=== PATIENT | male | born 1955 | race Caucasian/White ===

== ENCOUNTER → 2016-08-16 | Outpatient (CLI) | payer OTHER ==
--- NOTE | 2016-08-16 09:30 | CT ---
EXAMINATION TYPE: CT abdomen pelvis wo con DATE OF EXAM: 08/16/2016 7:48 AM COMPARISON: 01/29/2016 INDICATION: Right sided pain DLP: 752 mGycm, Automated exposure control for dose reduction was used. CONTRAST: None Study performed without Oral Contrast TECHNIQUE: Axial images were obtained from above the diaphragm to the pubic rami in the axial plane a t 5 mm thick sections. Reconstructed images are reviewed on the computer in the coronal plane. FINDINGS: Limited CT sections are obtained the lung bases. The lung bases are clear. CT ABDOMEN: Liver: Normal Spleen: Normal Pancreas: Normal Adrenal glands: The adrenal glands are normal. Gallbladder: Normal Kidneys: No masses are evident. No hydronephrosis is present. There is a 1.8 cm cyst measuring -3 H [place] units on the medial upper left kidney. Couple of punctate cortical medullary calcification s are within the left kidney. The largest calcifications are within the inferior pole measuring 0.3 a nd 0.2 cm. Aorta: Normal Inferior vena cava: Normal. CT PELVIS: Loops of bowel within the abdomen and pelvis are normal. Few diverticuli within the sigmoid colon . No inflammatory changes are adjacent. Appendix: Normal as visualized. Urinary bladder: Normal. Genitourinary structures: Multiple calcifications are in the slightly prominent prostate. There is so me subtle asymmetry of the seminal vesicles was slightly larger left than right. This could be furthe r evaluate with transrectal prostate sonography. Osseous structures: No suspicious lytic or sclerotic lesions. IMPRESSIONS: 1. Scattered small nonobstructing left renal stones. 2. Left renal cyst 3. Few diverticuli within the sigmoid colon without acute diverticulitis.
== END ==
LOC: RADCTMAIN 07:30
PROVIDERS: ATTEND Internal Medicine
DX: N20.0 Calculus of kidney (principal); N28.1 Cyst of kidney, acquired; K57.30 Diverticulosis of large intestine without perforation or abscess without bleeding
CPT/HCPCS: 74176

== ENCOUNTER → 2016-08-19 | Outpatient (CLI) | payer OTHER ==
--- NOTE | 2016-08-19 10:40 | XR ---
EXAMINATION TYPE: XR KUB DATE OF EXAM: 08/19/2016 10:33 AM HISTORY: Pain Comparison: None.Single KUB is submitted for interpretation. Findings: Right renal calculi: None Visualized. Right ureteral calculi: None Visualized. Left renal calculi: None Visualized. Left ureteral calculi: None Visualized. Pelvic calcifications: Phleboliths noted. Prostate calcifications also identified. Bowel gas pattern is unremarkable. No free air. No mass effects. IMPRESSION: 1.
== END | disposition home or self-care (01) ==
LOC: RADXRMAIN 10:20
PROVIDERS: ATTEND Physician Assistant
DX: N20.0 Calculus of kidney (principal)
CPT/HCPCS: 74000

== ENCOUNTER 2018-06-13 10:57 | Emergency (ER) | payer OTHER ==
[2018-06-13 11:04] VITALS: RESP 18
[2018-06-13] MEDS ORDERED: NITROGLYCERIN OINT 1 INCH/GM PACKET TOPICAL STA (11:14)
[2018-06-13] MEDS ORDERED: ASPIRIN 81 MG PO STA (11:14)
--- NOTE | 2018-06-13 11:17 | ED ---
General Adult HPI - General Source: patient, RN notes reviewed Mode of arrival: ambulatory Limitations: no limitations <Zeus Lubin - Last Filed: 06/13/18 11:56> <Jaquan Encinas - Last Filed: 06/13/18 12:50> - General Chief complaint: Chest Pain Stated complaint: JERALD Time Seen by Provider: 06/13/18 11:00 - History of Present Illness Initial comments: This is a 62-year-old male with past medical history significant for high cholesterol and high blood pressure. Patient comes in today complaining that for a couple days he's had jaw pain and today he started having left-sided chest pain. Patient states he also has had a little bit of a sore throat but that is improving. Patient states he's mildly short of breath. Patient denies any diaphoretic episodes. Patient denies any abdominal pain. Patient denies any nausea vomiting diarrhea. Patient denies any palpitations. Patient denies lightheadedness dizziness or near syncopal episode. Patient denies any swelling to the legs or calf tenderness. Patient denies any previous cardiac history. (Zeus Lubin) - Related Data Home Medications Medication Instructions Recorded Confirmed Atorvastatin [Lipitor] 10 mg PO DAILY 05/05/15 06/13/18 HYDROcodone/APAP 7.5-325MG [[place] 1 tab PO Q8HR PRN 06/13/18 06/13/18 7.5-325] Metoprolol Tartrate [Lopressor] 25 mg PO DAILY 06/13/18 06/13/18 amLODIPine BESYLATE/BENAZEPRIL 1 cap PO DAILY 06/13/18 06/13/18 [amLODIPine BESYLATE/BENAZEPRIL 10-20 mg] hydrALAZINE HCL [Apresoline] 25 mg PO BID 06/13/18 06/13/18 Previous Rx's Medication Instructions Recorded Albuterol Sulfate [Proair Hfa] 1 - 2 puff INHALATION Q6HR PRN #1 06/13/18 inhaler Allergies Allergy/AdvReac Type Severity Reaction Status Date / Time No Known Allergies Allergy Verified 06/13/18 11:21 Review of Systems ROS Other: All systems not noted in ROS Statement are negative. <Zeus Lubin - Last Filed: 06/13/18 11:56> ROS Other: All systems not noted in ROS Statement are negative. <Jaquan Encinas - Last Filed: 06/13/18 12:50> ROS Statement: Those systems with pertinent positive or pertinent negative responses have been documented in the HPI. Past Medical History Past Medical History: Asthma, Hypertension Additional Past Medical History / Comment(s): hypercholesteremia; asthma as child History of Any Multi-Drug Resistant Organisms: None Reported Additional Past Surgical History / Comment(s): colonoscopy Past Anesthesia/Blood Transfusion Reactions: No Reported Reaction Past Psychological History: No Psychological Hx Reported Smoking Status: Light tobacco smoker Past Alcohol Use History: Daily Past Drug Use History: None Reported - Past Family History Father Family Medical History: Congestive Heart Failure (CHF), Diabetes Mellitus Additional Family Medical History / Comment(s): passed at age 62. <Zeus Lubin - Last Filed: 06/13/18 11:56> General Exam Limitations: no limitations <Zeus Lubin - Last Filed: 06/13/18 11:56> <Jaquan Encinas - Last Filed: 06/13/18 12:50> - General Exam Comments Initial Comments: GENERAL: Patient is well-developed and well-nourished. Patient is nontoxic and well- hydrated and is in mild distress. ENT: Neck is soft and supple. No significant lymphadenopathy is noted. Oropharynx is clear. Moist mucous membranes. Neck has full range of motion without eliciting any pain. EYES: The sclera were anicteric and conjunctiva were pink and moist. Extraocular movements were intact and pupils were equal round and reactive to light. Eyelids were unremarkable. PULMONARY: Unlabored respirations. Good breath sounds bilaterally. No audible rales rhonchi or wheezing was noted. CARDIOVASCULAR: There is a regular rate and rhythm without any murmurs gallops or rubs. Femoral pulses are equal bilaterally ABDOMEN: Soft and nontender with normal bowel sounds. No palpable organomegaly was noted. There is no palpable pulsatile mass. SKIN: Skin is clear with no lesions or rashes and otherwise unremarkable. NEUROLOGIC: Patient is alert and oriented 3 cranial nerves II through XII are grossly intact motor and sensory are also intact MUSCULOSKELETAL: Normal extremities with adequate strength and full range of motion. LYMPHATICS: No significant lymphadenopathy is noted PSYCHIATRIC: Normal psychiatric evaluation. (Zeus Lubin) Vital Signs 06/13/18 06/13/18 06/13/18 11:01 11:29 11:30 Temperature 98.0 F Pulse Rate 94 82 Respiratory 18 20 Rate Blood Pressure 158/99 137/82 O2 Sat by Pulse 99 97 96 Oximetry 06/13/18 06/13/18 12:00 12:30 Temperature Pulse Rate 77 76 Respiratory 18 18 Rate Blood Pressure 131/79 126/78 O2 Sat by Pulse 97 97 Oximetry Medical Decision Making - Lab Data Result diagrams: 06/13/18 11:21 06/13/18 11:21 <Zeus Lubin - Last Filed: 06/13/18 11:56> - Lab Data Result diagrams: 06/13/18 11:21 06/13/18 11:21 <Jaquan Encinas - Last Filed: 06/13/18 12:50> - Medical Decision Making EKG shows normal sinus rhythm at 89 bpm IN interval is 170 QRS is 86 QT interval 356 QTC is 433. Patient's EKG shows no ST segment elevation or depression or T wave abnormalities are noted. Dr. Encinas will be taking care of this patient at 12:00 (Zeus Lubin) Patient is reevaluated by myself. He states that he did have mild sharp discomfort over the left chest without any diaphoresis, radiation to the shoulders. No upper extremity issues. Patient does have multiple risk factors. Cardiac work up was unremarkable. Chest x-ray showed findings of COPD. Patient has a history of COPD. Patient denies any cardiac history in himself. At this point patient's clinical picture is consistent with atypical chest pain in individual with multiple risk factors. At this point there are any high-risk features. Patient appears comfortable at this time. Discussed with patient that his disposition options are to remain observation for serial troponins and further cardiac workup however, patient requested that he be discharge. He does live nearby and is under the watchful eye of his significant other. Patient is warned that if he be discharge she can experiencing life-threatening cardiac morbidity or possibly even mortality. Patient still insists that he not stay in the hospital for further workup. He will return if he develops any worsening chest pain. Otherwise he is told to follow-up with his primary care doctor for COPD management and possibly outpatient cardiac workup. Patient is understandable and agreeable to this disposition. Patient is given prescription for albuterol inhaler when necessary shortness of breath. (Jaquan Encinas) - Lab Data Lab Results 06/13/18 06/13/18 06/13/18 Range/Units 11:21 11:21 11:21 WBC 7.5 (3.8-10.6) k/uL RBC 5.02 (4.30-5.90) m/uL Hgb 15.3 (13.0-17.5) gm/dL Hct 47.9 (39.0-53.0) % MCV 95.5 (80.0-100.0) fL MCH 30.5 (25.0-35.0) pg MCHC 32.0 (31.0-37.0) g/dL RDW 11.7 (11.5-15.5) % Plt Count 389 (150-450) k/uL Neutrophils % 68 % Lymphocytes % 18 % Monocytes % 7 % Eosinophils % 3 % Basophils % 1 % Neutrophils # 5.2 (1.3-7.7) k/uL Lymphocytes # 1.3 (1.0-4.8) k/uL Monocytes # 0.5 (0-1.0) k/uL Eosinophils # 0.2 (0-0.7) k/uL Basophils # 0.1 (0-0.2) k/uL PT (9.0-12.0) sec INR (<1.2) APTT (22.0-30.0) sec Sodium 138 (137-145) mmol/L Potassium 4.6 (3.5-5.1) mmol/L Chloride 103 (98-107) mmol/L Carbon Dioxide 24 (22-30) mmol/L Anion Gap 11 mmol/L BUN 17 (9-20) mg/dL Creatinine 0.74 (0.66-1.25) mg/dL Est GFR (CKD-EPI)AfAm >90 (>60 ml/min/1.73 sqM) Est GFR (CKD-EPI)NonAf >90 (>60 ml/min/1.73 sqM) Glucose 117 H (74-99) mg/dL Calcium 10.4 H (8.4-10.2) mg/dL Magnesium 1.9 (1.6-2.3) mg/dL Total Bilirubin 0.7 (0.2-1.3) mg/dL AST 31 (17-59) U/L ALT 37 (21-72) U/L Alkaline Phosphatase 50 (38-126) U/L Total Creatine Kinase 102 (55-170) U/L CK-MB (CK-2) 1.8 (0.0-2.4) ng/mL CK-MB (CK-2) Rel Index 1.8 Troponin I <0.012 (0.000-0.034) ng/mL Total Protein 8.5 H (6.3-8.2) g/dL Albumin 4.9 (3.5-5.0) g/dL 06/13/18 Range/Units 11:21 WBC (3.8-10.6) k/uL RBC (4.30-5.90) m/uL Hgb (13.0-17.5) gm/dL Hct (39.0-53.0) % MCV (80.0-100.0) fL MCH (25.0-35.0) pg MCHC (31.0-37.0) g/dL RDW (11.5-15.5) % Plt Count (150-450) k/uL Neutrophils % % Lymphocytes % % Monocytes % % Eosinophils % % Basophils % % Neutrophils # (1.3-7.7) k/uL Lymphocytes # (1.0-4.8) k/uL Monocytes # (0-1.0) k/uL Eosinophils # (0-0.7) k/uL Basophils # (0-0.2) k/uL PT 10.0 (9.0-12.0) sec INR 0.9 (<1.2) APTT 23.3 (22.0-30.0) sec Sodium (137-145) mmol/L Potassium (3.5-5.1) mmol/L Chloride (98-107) mmol/L Carbon Dioxide (22-30) mmol/L Anion Gap mmol/L BUN (9-20) mg/dL Creatinine (0.66-1.25) mg/dL Est GFR (CKD-EPI)AfAm (>60 ml/min/1.73 sqM) Est GFR (CKD-EPI)NonAf (>60 ml/min/1.73 sqM) Glucose (74-99) mg/dL Calcium (8.4-10.2) mg/dL Magnesium (1.6-2.3) mg/dL Total Bilirubin (0.2-1.3) mg/dL AST (17-59) U/L ALT (21-72) U/L Alkaline Phosphatase (38-126) U/L Total Creatine Kinase (55-170) U/L CK-MB (CK-2) (0.0-2.4) ng/mL CK-MB (CK-2) Rel Index Troponin I (0.000-0.034) ng/mL Total Protein (6.3-8.2) g/dL Albumin (3.5-5.0) g/dL Disposition <Zeus Lubin - Last Filed: 06/13/18 11:56> Is patient prescribed a controlled substance at d/c from ED?: No Time of Disposition: 12:48 <Jaquan Encinas - Last Filed: 06/13/18 12:50> Clinical Impression: Chest pain Disposition: HOME SELF-CARE Condition: Good Instructions: Chest Pain (ED) Prescriptions: Albuterol Sulfate [Proair Hfa] 1 - 2 puff INHALATION Q6HR PRN #1 inhaler PRN Reason: Shortness Of Breath Referrals: Consuelo Iqbal MD [Primary Care Provider] - 1-2 days
[2018-06-13 11:36] LABS: Basophils # (A) 0.1 k/uL (0-0.2); Basophils % (A) 1 %; Eosinophils # (A) 0.2 k/uL (0-0.7); Eosinophils % (A) 3 %; HCT 47.9 % (39.0-53.0); HGB 15.3 gm/dL (13.0-17.5); Lymphocytes # (A) 1.3 k/uL (1.0-4.8); Lymphocytes % (A) 18 %; MCH 30.5 pg (25.0-35.0); MCV 95.5 fL (80.0-100.0); Mean Platelet Volume 6.2; Monocytes # (A) 0.5 k/uL (0-1.0); Monocytes % (A) 7 %; Neutrophils # (A) 5.2 k/uL (1.3-7.7); Neutrophils % (A) 68 %; Platelet Count 389 k/uL (150-450); RBC 5.02 m/uL (4.30-5.90); RDW 11.7 % (11.5-15.5); WBC 7.5 k/uL (3.8-10.6)
[2018-06-13 11:51] LABS: ALT 37 U/L (21-72); AST 31 U/L (17-59); Albumin 4.9 g/dL (3.5-5.0); Alkaline Phosphatase 50 U/L (38-126); Anion Gap 11 mmol/L; Blood Urea Nitrogen 17 mg/dL (9-20); Calcium 10.4 mg/dL (8.4-10.2); Carbon Dioxide 24 mmol/L (22-30); Chloride 103 mmol/L (98-107); Glucose 117 mg/dL (74-99); INR 0.9 (<1.2); Magnesium 1.9 mg/dL (1.6-2.3); Partial Thromboplastin Time 23.3 sec (22.0-30.0); Potassium 4.6 mmol/L (3.5-5.1); Sodium 138 mmol/L (137-145); Total Bilirubin 0.7 mg/dL (0.2-1.3); Total Protein 8.5 g/dL (6.3-8.2)
[2018-06-13 11:55] LABS: Creatine Kinase 102 U/L (55-170)
[2018-06-13 12:08] LABS: Creatine Kinase MB 1.8 ng/mL (0.0-2.4); Troponin I <0.012 ng/mL (0.000-0.034)
--- NOTE | 2018-06-13 12:37 | XR ---
EXAMINATION TYPE: XR chest 2V DATE OF EXAM: 06/13/2018 COMPARISON: 05/31/2014 INDICATION: Chest pain short of breath TECHNIQUE: Frontal and lateral views of the chest are obtained. FINDINGS: The heart size is normal. The pulmonary vasculature is normal. The lungs are clear. There is hyperinflation and flattening of diaphragms which could be related to COPD. IMPRESSION: 1. No acute pulmonary process. 2. Clinical correlation recommended for COPD.
[2018-06-13 13:08] VITALS: BP 106/68; PULSE 75; TEMP 98.6
== END 2018-06-13 13:13 | disposition home or self-care (01) ==
LOC: EC 10:57
DX: R07.9 Chest pain, unspecified (principal); R06.00 Dyspnea, unspecified; J02.9 Acute pharyngitis, unspecified; J44.9 Chronic obstructive pulmonary disease, unspecified; I10 Essential (primary) hypertension; E78.00 Pure hypercholesterolemia, unspecified; F17.200 Nicotine dependence, unspecified, uncomplicated; Z82.49 Family history of ischemic heart disease and other diseases of the circulatory system; Z79.899 Other long term (current) drug therapy
CPT/HCPCS: 36415; 71046; 80053; 82550; 82553; 83735; 84484; 85025; 85610; 85730; 93005; 99285

== ENCOUNTER 2018-06-20 13:01 | Emergency (ER) | payer OTHER ==
[2018-06-20 13:58] VITALS: TEMP 98.3
--- NOTE | 2018-06-20 14:32 | XR ---
EXAMINATION TYPE: XR chest 2V DATE OF EXAM: 06/20/2018 COMPARISON: 06/13/2018 HISTORY: Difficulty swallowing TECHNIQUE: Frontal and lateral views of the chest are obtained. FINDINGS: Heart and mediastinum are normal. Lungs are clear. Diaphragm is normal. Bony thorax appear s normal. IMPRESSION: Normal chest. No change.
--- NOTE | 2018-06-20 15:56 | ED ---
General Adult HPI - General Chief complaint: Shortness of Breath Stated complaint: Swollen throat/hard time breathing Time Seen by Provider: 06/20/18 14:00 Source: patient, RN notes reviewed Mode of arrival: ambulatory Limitations: no limitations - History of Present Illness Initial comments: This a 62-year-old male presents emergency Department complaining that he has throat pain since . Patient states the pain is been getting worse since and he states he feels like sometimes he can't get his breath. Patient states since she's been sitting here couple hours in the waiting room he feels as though that sensation has improved but the pain remains. Patient denies any fever chills. Patient denies any chest pain. Patient denies any cough. Patient denies abdominal pain patient denies nausea or vomiting. Patient states she's been able to eat fine and when he wants to take a deep breath he can take a deep breath. - Related Data Home Medications Medication Instructions Recorded Confirmed Atorvastatin [Lipitor] 10 mg PO DAILY 05/05/15 06/20/18 HYDROcodone/APAP 7.5-325MG [[place] 1 tab PO Q8HR PRN 06/13/18 06/20/18 7.5-325] Metoprolol Tartrate [Lopressor] 25 mg PO DAILY 06/13/18 06/20/18 amLODIPine BESYLATE/BENAZEPRIL 1 cap PO DAILY 06/13/18 06/20/18 [amLODIPine BESYLATE/BENAZEPRIL 10-20 mg] hydrALAZINE HCL [Apresoline] 25 mg PO BID 06/13/18 06/20/18 Albuterol Inhaler [Ventolin Hfa 1 - 2 puff INHALATION RT-Q6H PRN 06/20/18 Inhaler] Previous Rx's Medication Instructions Recorded Amoxicillin/Potassium Clav 1 each PO Q12HR #28 tab 06/20/18 [Augmentin 875-125 Tablet] Allergies Allergy/AdvReac Type Severity Reaction Status Date / Time No Known Allergies Allergy Verified 06/20/18 15:15 Review of Systems ROS Statement: Those systems with pertinent positive or pertinent negative responses have been documented in the HPI. ROS Other: All systems not noted in ROS Statement are negative. Past Medical History Past Medical History: Asthma, COPD, Hypertension Additional Past Medical History / Comment(s): hypercholesteremia; asthma as child History of Any Multi-Drug Resistant Organisms: None Reported Additional Past Surgical History / Comment(s): colonoscopy Past Anesthesia/Blood Transfusion Reactions: No Reported Reaction Past Psychological History: No Psychological Hx Reported Smoking Status: Light tobacco smoker Past Alcohol Use History: Daily Past Drug Use History: None Reported - Past Family History Father Family Medical History: Congestive Heart Failure (CHF), Diabetes Mellitus Additional Family Medical History / Comment(s): passed at age 62. General Exam - General Exam Comments Initial Comments: GENERAL: Patient is well-developed and well-nourished. Patient is nontoxic and well- hydrated and is in no acute distress. ENT: Neck is soft and supple. No significant lymphadenopathy is noted. Oropharynx is clear. Moist mucous membranes. Neck has full range of motion without eliciting any pain. I saw no swelling in the oropharynx or any erythema. There was no fullness on palpation or masses palpated on an examination of the neck EYES: The sclera were anicteric and conjunctiva were pink and moist. Extraocular movements were intact and pupils were equal round and reactive to light. Eyelids were unremarkable. PULMONARY: Unlabored respirations. Good breath sounds bilaterally. No audible rales rhonchi or wheezing was noted. CARDIOVASCULAR: There is a regular rate and rhythm without any murmurs gallops or rubs. ABDOMEN: Soft and nontender with normal bowel sounds. SKIN: Skin is clear with no lesions or rashes and otherwise unremarkable. NEUROLOGIC: Patient is alert and oriented x3. Cranial nerves II through XII are grossly intact. Motor and sensory are also intact. Normal speech, volume and content. Symmetrical smile. MUSCULOSKELETAL: Normal extremities with adequate strength and full range of motion. LYMPHATICS: No significant lymphadenopathy is noted PSYCHIATRIC: Normal psychiatric evaluation. Limitations: no limitations Course Vital Signs 06/20/18 13:54 Temperature 98.3 F Pulse Rate 104 H Respiratory 20 Rate Blood Pressure 156/89 O2 Sat by Pulse 98 Oximetry Medical Decision Making - Medical Decision Making EKG shows normal sinus rhythm at 82 bpm OH interval is on her 72 QRS is 74 QT interval 360 QTC is 429. Patient's EKG shows no ST segment elevation or depression or T wave abnormalities are noted. Patient's CAT scan of the soft tissue of the neck showed maxillary and ethmoid sinusitis but no explanation for the throat soreness. - Lab Data Result diagrams: 06/20/18 16:06 06/20/18 16:06 Lab Results 06/20/18 06/20/18 06/20/18 Range/Units 16:06 16:06 16:30 WBC 7.1 (3.8-10.6) k/uL RBC 4.77 (4.30-5.90) m/uL Hgb 15.0 (13.0-17.5) gm/dL Hct 45.4 (39.0-53.0) % MCV 95.1 (80.0-100.0) fL MCH 31.4 (25.0-35.0) pg MCHC 33.0 (31.0-37.0) g/dL RDW 11.9 (11.5-15.5) % Plt Count 297 (150-450) k/uL Neutrophils % 66 % Lymphocytes % 21 % Monocytes % 6 % Eosinophils % 4 % Basophils % 1 % Neutrophils # 4.7 (1.3-7.7) k/uL Lymphocytes # 1.5 (1.0-4.8) k/uL Monocytes # 0.4 (0-1.0) k/uL Eosinophils # 0.3 (0-0.7) k/uL Basophils # 0.1 (0-0.2) k/uL Sodium 137 (137-145) mmol/L Potassium 4.4 (3.5-5.1) mmol/L Chloride 103 (98-107) mmol/L Carbon Dioxide 24 (22-30) mmol/L Anion Gap 10 mmol/L BUN 14 (9-20) mg/dL Creatinine 0.60 L (0.66-1.25) mg/dL Est GFR (CKD-EPI)AfAm >90 (>60 ml/min/1.73 sqM) Est GFR (CKD-EPI)NonAf >90 (>60 ml/min/1.73 sqM) Glucose 106 H (74-99) mg/dL Calcium 10.0 (8.4-10.2) mg/dL Total Bilirubin 0.7 (0.2-1.3) mg/dL AST 27 (17-59) U/L ALT 38 (21-72) U/L Alkaline Phosphatase 47 (38-126) U/L Total Protein 7.9 (6.3-8.2) g/dL Albumin 4.8 (3.5-5.0) g/dL Group A Strep Rapid Negative (Negative) Disposition Clinical Impression: Sinusitis Disposition: HOME SELF-CARE Condition: Good Instructions: Sinusitis (ED) Prescriptions: Amoxicillin/Potassium Clav [Augmentin 875-125 Tablet] 1 each PO Q12HR #28 tab Is patient prescribed a controlled substance at d/c from ED?: No Referrals: Consuelo Iqbal MD [Primary Care Provider] - 1-2 days
[2018-06-20 16:17] LABS: Basophils # (A) 0.1 k/uL (0-0.2); Basophils % (A) 1 %; Eosinophils # (A) 0.3 k/uL (0-0.7); Eosinophils % (A) 4 %; HCT 45.4 % (39.0-53.0); Lymphocytes # (A) 1.5 k/uL (1.0-4.8); Lymphocytes % (A) 21 %; MCH 31.4 pg (25.0-35.0); MCV 95.1 fL (80.0-100.0); Mean Platelet Volume 6.1; Monocytes # (A) 0.4 k/uL (0-1.0); Monocytes % (A) 6 %; Neutrophils # (A) 4.7 k/uL (1.3-7.7); Neutrophils % (A) 66 %; Platelet Count 297 k/uL (150-450); RBC 4.77 m/uL (4.30-5.90); RDW 11.9 % (11.5-15.5); WBC 7.1 k/uL (3.8-10.6)
[2018-06-20 16:29] LABS: ALT 38 U/L (21-72); AST 27 U/L (17-59); Albumin 4.8 g/dL (3.5-5.0); Alkaline Phosphatase 47 U/L (38-126); Anion Gap 10 mmol/L; Blood Urea Nitrogen 14 mg/dL (9-20); Carbon Dioxide 24 mmol/L (22-30); Chloride 103 mmol/L (98-107); Glucose 106 mg/dL (74-99); Potassium 4.4 mmol/L (3.5-5.1); Sodium 137 mmol/L (137-145); Total Bilirubin 0.7 mg/dL (0.2-1.3); Total Protein 7.9 g/dL (6.3-8.2)
--- NOTE | 2018-06-20 17:06 | CT ---
EXAMINATION TYPE: CT soft tissue neck w con DATE OF EXAM: 06/20/2018 4:47 PM COMPARISON: None HISTORY: Swollen throat, JERALD CT DLP: 233.9 mGycm Automated exposure control for dose reduction was used. CONTRAST: CT scan of the neck is performed following with IV Contrast, patient injected with 100 mL of Isovue 3 00. Axial images are obtained, coronal and sagittal reformatted images are reviewed. FINDINGS: There is normal branching pattern of the great vessels on the aortic arch. Thyroid gland is symmetric . There is contrast opacification of the carotid arteries and jugular veins. There is bilateral contr ast opacification of the vertebral arteries. Epiglottis appears normal. Visualized trachea appears no rmal. There is no evidence of a pharyngeal mass. There is mucosal thickening in the maxillary and eth moid and sphenoid sinuses. Submandibular salivary glands are symmetric. Parotid glands are symmetric. There is bilateral calcifi cation within the tonsils. There is also some calcification more laterally on the right and left side that raises the possibility of a parotid duct stone. Cervical vertebra have fairly normal spacing and alignment. Posterior elements are intact. Prevertebr al soft tissues are not enlarged. IMPRESSION: Pansinusitis. Old granulomatous disease with calcification in the tonsils. Possible stone in the right and left parotid duct.
[2018-06-20 18:22] VITALS: BP 141/79; PULSE 91; RESP 16
== END 2018-06-20 18:25 | disposition home or self-care (01) ==
LOC: EC 13:01
DX: J32.4 Chronic pansinusitis (principal); E78.00 Pure hypercholesterolemia, unspecified; I10 Essential (primary) hypertension; J44.9 Chronic obstructive pulmonary disease, unspecified; F17.200 Nicotine dependence, unspecified, uncomplicated; Z79.899 Other long term (current) drug therapy
CPT/HCPCS: 36415; 93005; 80053; 85025; 87081; 87430; 71046; 70491; 99285; Q9967

== ENCOUNTER 2018-07-04 16:29 | Observation (INO) | payer OTHER ==
[2018-07-04] MEDS ORDERED: SODIUM CHLORIDE 0.9% 1,000 ML IV SCH (17:30)
[2018-07-04 18:00] VITALS: RESP 18
[2018-07-04] MEDS ORDERED: HYDROcodone/APAP 7.5-325MG 1 EACH TAB PO PRN (18:01)
--- NOTE | 2018-07-04 18:24 | XR ---
EXAMINATION: XR chest 2V DATE AND TIME: 07/04/2018 5:44 PM CLINICAL INDICATION: [facility]; direct admit chest pain TECHNIQUE: Departmental protocol COMPARISON: 06/20/2018 FINDINGS: The lungs are clear. The pleural spaces are negative. The cardiac silhouette is not enlarged. The remainder of the mediastinal silhouette is unremarkable. The skeletal structures and soft tissues are negative for acute findings. IMPRESSION: NO ACUTE PROCESS.
[2018-07-04 18:30] LABS: Basophils # (A) 0.1 k/uL (0-0.2); Basophils % (A) 1 %; Eosinophils # (A) 0.5 k/uL (0-0.7); Eosinophils % (A) 6 %; HCT 47.5 % (39.0-53.0); HGB 15.4 gm/dL (13.0-17.5); Lymphocytes # (A) 1.6 k/uL (1.0-4.8); Lymphocytes % (A) 20 %; MCH 30.9 pg (25.0-35.0); MCHC 32.4 g/dL (31.0-37.0); MCV 95.3 fL (80.0-100.0); Mean Platelet Volume 6.4; Monocytes # (A) 0.5 k/uL (0-1.0); Monocytes % (A) 6 %; Neutrophils # (A) 5.5 k/uL (1.3-7.7); Neutrophils % (A) 66 %; Platelet Count 376 k/uL (150-450); RBC 4.98 m/uL (4.30-5.90); RDW 11.6 % (11.5-15.5); WBC 8.3 k/uL (3.8-10.6)
[2018-07-04 18:36] LABS: ALT 43 U/L (21-72); AST 31 U/L (17-59); Albumin 4.8 g/dL (3.5-5.0); Alkaline Phosphatase 43 U/L (38-126); Anion Gap 12 mmol/L; Blood Urea Nitrogen 8 mg/dL (9-20); Carbon Dioxide 24 mmol/L (22-30); Chloride 102 mmol/L (98-107); Glucose 112 mg/dL (74-99); Potassium 4.4 mmol/L (3.5-5.1); Sodium 138 mmol/L (137-145); Total Bilirubin 0.6 mg/dL (0.2-1.3)
[2018-07-04 18:51] LABS: Creatine Kinase 85 U/L (55-170)
[2018-07-04 19:04] LABS: Creatine Kinase MB 1.6 ng/mL (0.0-2.4); Troponin I <0.012 ng/mL (0.000-0.034)
[2018-07-04] MEDS: HEPARIN SODIUM,PORCINE 5,000 UNIT/ML 1 ML VIAL SQ SCH (20:50)
[2018-07-04] MEDS: hydrALAZINE HCL 25 MG TAB PO SCH (20:50)
[2018-07-04] MEDS ORDERED: ATORVASTATIN 10 MG TAB PO SCH (21:00)
[2018-07-05] MEDS ORDERED: SODIUM CHLORIDE 0.65% NASAL SPRAY 44 ML BTL NASAL PRN (03:39)
[2018-07-05 08:41] LABS: Basophils # (A) 0.1 k/uL (0-0.2); Basophils % (A) 1 %; Eosinophils # (A) 0.4 k/uL (0-0.7); Eosinophils % (A) 7 %; HCT 42.8 % (39.0-53.0); HGB 14.5 gm/dL (13.0-17.5); Lymphocytes # (A) 1.5 k/uL (1.0-4.8); Lymphocytes % (A) 23 %; MCH 32.2 pg (25.0-35.0); MCHC 33.8 g/dL (31.0-37.0); MCV 95.3 fL (80.0-100.0); Mean Platelet Volume 6.7; Monocytes # (A) 0.4 k/uL (0-1.0); Monocytes % (A) 6 %; Neutrophils # (A) 3.8 k/uL (1.3-7.7); Neutrophils % (A) 61 %; Platelet Count 341 k/uL (150-450); RBC 4.49 m/uL (4.30-5.90); RDW 11.9 % (11.5-15.5); WBC 6.2 k/uL (3.8-10.6)
[2018-07-05 08:44] LABS: ALT 39 U/L (21-72); AST 26 U/L (17-59); Albumin 4.1 g/dL (3.5-5.0); Alkaline Phosphatase 39 U/L (38-126); Anion Gap 7 mmol/L; Blood Urea Nitrogen 10 mg/dL (9-20); Calcium 9.9 mg/dL (8.4-10.2); Carbon Dioxide 28 mmol/L (22-30); Chloride 105 mmol/L (98-107); Glucose 106 mg/dL (74-99); Potassium 4.8 mmol/L (3.5-5.1); Sodium 140 mmol/L (137-145); Total Bilirubin 0.4 mg/dL (0.2-1.3); Total Protein 6.7 g/dL (6.3-8.2)
[2018-07-05] MEDS ORDERED: METOPROLOL TARTRATE 25 MG TAB PO SCH (09:00)
[2018-07-05] MEDS ORDERED: amLODIPine 10 MG TAB PO SCH (09:00)
[2018-07-05] MEDS ORDERED: LISINOPRIL 20 MG TAB PO SCH (09:00)
--- NOTE | 2018-07-05 09:31 | US ---
EXAMINATION TYPE: US gallbladder DATE OF EXAM: 07/05/2018 COMPARISON: None CLINICAL HISTORY: abdominal pain. Bloating, acid reflex, pain EXAM MEASUREMENTS: Liver Length: 15.8 cm Gallbladder Wall: 0.2 cm CHD: 0.4 cm Right Kidney: 9.7 x 5.4 x 5.4 cm Pancreas: Obscured by bowel gas Liver: wnl Gallbladder: wnl Evidence for sonographic Marks's sign: neg CBD: Obscured by overlying bowel gas CHD: wnl Right Kidney: wnl IMPRESSION: 1. No suspicious acute changes.
--- NOTE | 2018-07-05 10:39 | P.HPIM ---
History of Present Illness H&P Date: 07/05/18 This is a 62-year-old male patient who presented to the hospital with complaints of chest pain. Patient states this has been occurring intermittently over the past week. Patient states he often feels bloated in has increased belching that occurs with the chest pain. Patient has a past medical history of asthma, COPD, hyperlipidemia, hypertension and ex-smoker. Chest x-ray completed showing no acute process. Troponins negative. EKG ordered. Cardiology service is consulted. Gallbladder ultrasound completed showing no suspicious acute changes. At this time patient is asymptomatic. Patient denies chest pain or shortness of breath. Patient denies nausea vomiting or diarrhea. Patient denies any urinary burning or frequency Review of Systems Please refer to HPI otherwise unremarkable Past Medical History Past Medical History: Asthma, COPD, Hyperlipidemia, Hypertension Additional Past Medical History / Comment(s): hypercholesteremia; asthma as child History of Any Multi-Drug Resistant Organisms: None Reported Additional Past Surgical History / Comment(s): colonoscopy, I&d lt axilla abcess in 2014 bx neg. Past Anesthesia/Blood Transfusion Reactions: No Reported Reaction Smoking Status: Former smoker - Past Family History Mother History Unknown: Yes Father Family Medical History: Congestive Heart Failure (CHF), Diabetes Mellitus Additional Family Medical History / Comment(s): passed at age 62. Medications and Allergies Home Medications Medication Instructions Recorded Confirmed Type Atorvastatin [Lipitor] 10 mg PO HS 05/05/15 07/04/18 History HYDROcodone/APAP 7.5-325MG [[place] 1 tab PO TID PRN 06/13/18 07/04/18 History 7.5-325] Metoprolol Tartrate [Lopressor] 25 mg PO DAILY 06/13/18 07/04/18 History amLODIPine BESYLATE/BENAZEPRIL 1 cap PO DAILY 06/13/18 07/04/18 History [amLODIPine BESYLATE/BENAZEPRIL 10-20 mg] hydrALAZINE HCL [Apresoline] 25 mg PO BID 06/13/18 07/04/18 History Albuterol Inhaler [Ventolin Hfa 2 puff INHALATION RT-QID 06/20/18 07/04/18 History Inhaler] Allergies Allergy/AdvReac Type Severity Reaction Status Date / Time No Known Allergies Allergy Verified 07/04/18 20:37 Physical Exam Vitals: Vital Signs Temp Pulse Resp BP BP Pulse Ox 07/05/18 07:25 97.9 F 69 18 121/76 96 07/05/18 04:00 98 F 73 18 129/79 96 07/05/18 00:00 18 07/04/18 23:54 97.6 F 80 18 119/79 97 07/04/18 20:00 18 07/04/18 17:00 97.5 F L 99 18 124/88 97 Intake and Output 07/04/18 07/05/18 07/05/18 22:59 06:59 14:59 Intake Total 236 Balance 236 Intake: Oral 236 Other: Voiding Method Toilet Toilet # Voids 2 Weight 70.76 kg Head normocephalic Neck supple Lungs clear to auscultation bilaterally no wheezing or crackles Heart regular rate and rhythm S1-S2, no rub or gallop Abdomen is soft nontender nondistended positive bowel sounds no hepatosplenomegaly Extremities no edema Neuro alert and orientated to 3 Results CBC & Chem 7: 07/05/18 05:22 07/05/18 05:22 Labs: Abnormal Lab Results - Last 24 Hours (Table) 07/04/18 07/05/18 Range/Units 17:29 05:22 BUN 8 L (9-20) mg/dL Glucose 112 H 106 H (74-99) mg/dL Thrombosis Risk Factor Assmnt - Choose All That Apply Any of the Below Risk Factors Present?: Yes Each Factor Represents 1 point: Abnormal pulmonary function (COPD), Obesity ( BMI >25) Other Risk Factors: Yes Each Risk Factor Represents 2 Points: Age 61-74 years Thrombosis Risk Factor Assessment Total Risk Factor Score: 4 Thrombosis Risk Factor Assessment Level: Moderate Risk Assessment and Plan Assessment: 1. Chest pain. Troponins negative. EKG ordered. Cardiology services consulted. Ultrasound of gallbladder completed showing no suspicious acute changes. Chest x-ray completed showing no acute process. 2. History of asthma 3. History of COPD 4. History of hyperlipidemia 5. History of essential hypertension. DVT prophylaxis heparin. GI prophylaxis Protonix Time with Patient: Greater than 30 (Greater than 60% of the total time spent in counseling and coordination of care. I performed an examination of the patient and discussed their management with the Nurse Practitioner. I have reviewed the Nurse Practitioner's notes and agree with the documented findings and plan of care)
[2018-07-05] MEDS: hydrALAZINE HCL 25 MG TAB PO SCH (10:42)
[2018-07-05] MEDS: HEPARIN SODIUM,PORCINE 5,000 UNIT/ML 1 ML VIAL SQ SCH (10:42)
--- NOTE | 2018-07-05 10:51 | P.CRDCN ---
History of Present Illness History of present illness: This is a pleasant 62-year-old male past medical history significant for dyslipidemia, COPD, hypertension and daily alcohol abuse. He was sent to the hospital by his primary care physician for symptoms of epigastric pain and bloating. We have been asked to see him in consultation for chest discomfort. He denies ever having any heavy pressure sensation in the precordial region. He states every time after he eat he feels his stomach becomes extremely bloated and he is a tender sensation to the right upper quadrant. He denies pain in the back, arms, neck or jaw. He denies associated shortness of breath, dizziness, palpitations, nausea, vomiting or diaphoresis. EKG reveals sinus mechanism. Chest x-ray is negative for an acute cardiopulmonary process. Laboratory data reviewed, WBC 6.2, hemoglobin 14.5, platelets 341, d-dimer 0.23 , sodium 140, potassium 4.8, creatinine 0.77, cardiac enzymes negative 3, NTproBNP 49. Current cardiac medications include atorvastatin 10 mg daily, Lopressor 25 mg daily, hydralazine 25 mg twice a day and amlodipine/benazepril 10/20 mg daily. At the time of my exam: CONSTITUTIONAL: Denies fever. Denies chills. EYES: Denies blurred vision. Denies vision changes. Denies eye pain. EARS, NOSE, MOUTH & THROAT: Denies headache. Denies sore throat. Denies ear pain. CARDIOVASCULAR: Denies chest pain. Denies shortness of breath. Denies orthopnea. Denies PND. Denies palpitations. RESPIRATORY: Denies cough. GASTROINTESTINAL: Denies abdominal pain. Denies diarrhea. Denies constipation. Denies nausea. Denies vomiting. MUSCULOSKELETAL: Denies myalgias. INTEGUMENTARY: Denies pruitis. Denies rash. NEUROLOGIC: Denies numbness. Denies tingling. Denies weakness. PSYCHIATRIC: Denies anxiety. Denies depression. ENDOCRINE: Denies fatigue. Denies weight change. Denies polydipsia. Denies polyurina. GENITOURINARY: Denies burning, hematuria or urgency with micturation. HEMATOLOGIC: Denies history of anemia. Denies bleeding. Blood pressure 121/76 heart rate 69 afebrile maintaining oxygen saturation on room air GENERAL: This is a 62-year-old male in no apparent distress at the time of my examination. HEENT: Head is atraumatic, normocephalic. Pupils are equal, round. Sclerae anicteric. Conjunctivae are clear. Mucous membranes of the mouth are moist. Neck is supple. There is no jugular venous distention. No carotid bruit is heard. LUNGS: Clear to auscultation no wheezes, rales or rhonchi. No chest wall tenderness is noted on palpation or with deep breathing. HEART: Regular rate and rhythm without murmurs, rubs or gallops. S1 and S2 heard. ABDOMEN: Soft, nontender. Bowel sounds are heard. No organomegaly noted. EXTREMITIES: No evidence of peripheral edema and no calf tenderness noted. VASCULAR: Radial and dorsalis pedis pulses palpated, no evidence of clubbing. NEUROLOGIC: Patient is awake, alert and oriented x3. ASSESSMENT Epigastric and abdominal pain with bloating Hypertension Dyslipidemia COPD Daily alcohol intake Former nicotine dependence PLAN Obtain ultrasound of the gallbladder and 2D echocardiogram. An acute coronary event has been ruled out. Symptoms not suggestive of angina. Stable from a cardiac perspective. Ongoing medical management of abdominal discomfort. Follow up with Dr. Elena in 3-4 weeks and will undergo outpatient stress testing once abdominal discomfort has been addressed. Alcohol cessation recommended. Thank you kindly for this consultation. Nurse Practitioner note has been reviewed, I agree with a documented findings and plan of care. Patient was seen and examined. Past Medical History Past Medical History: Asthma, COPD, Hyperlipidemia, Hypertension Additional Past Medical History / Comment(s): hypercholesteremia; asthma as child History of Any Multi-Drug Resistant Organisms: None Reported Additional Past Surgical History / Comment(s): colonoscopy, I&d lt axilla abcess in 2014 bx neg. Past Anesthesia/Blood Transfusion Reactions: No Reported Reaction Smoking Status: Former smoker - Past Family History Mother History Unknown: Yes Father Family Medical History: Congestive Heart Failure (CHF), Diabetes Mellitus Additional Family Medical History / Comment(s): passed at age 62. Medications and Allergies Home Medications Medication Instructions Recorded Confirmed Type Atorvastatin [Lipitor] 10 mg PO HS 05/05/15 07/04/18 History HYDROcodone/APAP 7.5-325MG [[place] 1 tab PO TID PRN 06/13/18 07/04/18 History 7.5-325] Metoprolol Tartrate [Lopressor] 25 mg PO DAILY 06/13/18 07/04/18 History amLODIPine BESYLATE/BENAZEPRIL 1 cap PO DAILY 06/13/18 07/04/18 History [amLODIPine BESYLATE/BENAZEPRIL 10-20 mg] hydrALAZINE HCL [Apresoline] 25 mg PO BID 06/13/18 07/04/18 History Albuterol Inhaler [Ventolin Hfa 2 puff INHALATION RT-QID 06/20/18 07/04/18 History Inhaler] Allergies Allergy/AdvReac Type Severity Reaction Status Date / Time No Known Allergies Allergy Verified 07/04/18 20:37 Physical Exam Vitals: Vital Signs Temp Pulse Resp BP BP Pulse Ox 07/05/18 07:25 97.9 F 69 18 121/76 96 07/05/18 04:00 98 F 73 18 129/79 96 07/05/18 00:00 18 07/04/18 23:54 97.6 F 80 18 119/79 97 07/04/18 20:00 18 07/04/18 17:00 97.5 F L 99 18 124/88 97 Intake and Output 07/04/18 07/05/18 07/05/18 22:59 06:59 14:59 Intake Total 236 Balance 236 Intake: Oral 236 Other: Voiding Method Toilet Toilet # Voids 2 Weight 70.76 kg Results 07/05/18 05:22 07/05/18 05:22 Cardiac Enzymes 07/04/18 07/04/18 07/04/18 Range/Units 17:29 17:29 23:19 AST 31 (17-59) U/L CK-MB (CK-2) 1.6 (0.0-2.4) ng/mL Troponin I <0.012 <0.012 (0.000-0.034) ng/mL 07/05/18 Range/Units 05:22 AST (17-59) U/L CK-MB (CK-2) (0.0-2.4) ng/mL Troponin I <0.012 (0.000-0.034) ng/mL CBC 07/04/18 Range/Units 17:29 WBC 8.3 (3.8-10.6) k/uL RBC 4.98 (4.30-5.90) m/uL Hgb 15.4 (13.0-17.5) gm/dL Hct 47.5 (39.0-53.0) % Plt Count 376 (150-450) k/uL Comprehensive Metabolic Panel 07/04/18 Range/Units 17:29 Sodium 138 (137-145) mmol/L Potassium 4.4 (3.5-5.1) mmol/L Chloride 102 (98-107) mmol/L Carbon Dioxide 24 (22-30) mmol/L BUN 8 L (9-20) mg/dL Creatinine 0.69 (0.66-1.25) mg/dL Glucose 112 H (74-99) mg/dL Calcium 10.0 (8.4-10.2) mg/dL AST 31 (17-59) U/L ALT 43 (21-72) U/L Alkaline Phosphatase 43 (38-126) U/L Total Protein 8.0 (6.3-8.2) g/dL Albumin 4.8 (3.5-5.0) g/dL Current Medications Generic Name Dose Route Start Last Admin Trade Name Freq PRN Reason Stop Dose Admin Hydrocodone Bitart/Acetaminophen 1 each 07/04/18 18:01 [place] 7.5-325 PO Q8HR PRN Pain Amlodipine Besylate 10 mg 07/05/18 09:00 Norvasc PO DAILY PENDING SALE TO [facility] Atorvastatin Calcium 10 mg 07/04/18 21:00 07/04/18 20:50 Lipitor PO 10 mg HS LEVY Administration Heparin Sodium (Porcine) 5,000 unit 07/04/18 21:00 07/04/18 20:50 Heparin SQ 5,000 unit Q12HR LEVY Administration Hydralazine HCl 25 mg 07/04/18 21:00 07/04/18 20:50 Apresoline PO 25 mg BID LEVY Administration Sodium Chloride 1,000 mls @ 20 mls/hr 07/04/18 17:30 Saline 0.9% IV .Q24H LEVY Lisinopril 20 mg 07/05/18 09:00 Zestril PO DAILY PENDING SALE TO [facility] Metoprolol Tartrate 25 mg 07/05/18 09:00 Lopressor PO DAILY PENDING SALE TO [facility] Sodium Chloride 2 spray 07/05/18 03:39 07/05/18 03:53 [place] NASAL 2 spray QID PRN Administration Congestion Intake and Output 07/04/18 07/05/18 07/05/18 22:59 06:59 14:59 Intake Total 236 Balance 236 Intake: Oral 236 Other: Voiding Method Toilet Toilet # Voids 2 Weight 70.76 kg 07/04/18 17:29 07/04/18 17:29
[2018-07-05 11:56] VITALS: BP 124/78; PULSE 64; TEMP 98.2
--- NOTE | 2018-07-05 14:09 | P.DS ---
Providers Date of admission: 07/04/18 16:40 Expected date of discharge: 07/05/18 Attending physician: Consuelo Iqbal Consults: 07/04/18 17:16 Consult Physician Routine Consulting Provider: Nayan Elena Consult Reason/Comments: chest pain Do you want consulting provider notified?: Yes Placement Type Exists?: Yes Primary care physician: Consuelo Farida [facility] Course: Discharge diagnosis 1. Chest pain. Troponins negative. EKG ordered. Cardiology services consulted. Ultrasound of gallbladder completed showing no suspicious acute changes. Chest x-ray completed showing no acute process. Per cardiology and acute coronary event has been ruled out. Patient to follow-up with Dr. Elena in 3-4 weeks and will undergo outpatient stress testing once abdominal discomfort has been addressed. At this time will DC patient on Protonix twice a day and patient to follow-up with primary care provider 2. History of asthma 3. History of COPD 4. History of hyperlipidemia 5. History of essential hypertension. Hospital course This is a 62-year-old male patient who presented to the hospital with complaints of chest pain. Patient states this has been occurring intermittently over the past week. Patient states he often feels bloated in has increased belching that occurs with the chest pain. Patient has a past medical history of asthma, COPD, hyperlipidemia, hypertension and ex-smoker. Chest x-ray completed showing no acute process. Troponins negative. EKG ordered. Cardiology service is consulted. Gallbladder ultrasound completed showing no suspicious acute changes. At this time patient is asymptomatic. Patient denies chest pain or shortness of breath. Patient denies nausea vomiting or diarrhea. Patient denies any urinary burning or frequency On 07/05/2018 patient is resting comfortably in bed. Patient is alert and oriented 3. Patient has been cleared from cardiology standpoint. Ultrasound of gallbladder completed showing no suspicious acute changes. Patient will be DC'd home on Protonix twice a day. Patient advised to follow up with PCP and cardiology services for outpatient stress test in 3-4 weeks. At this time patient denies chest pain or shortness breath. Patient denies nausea vomiting or diarrhea. Patient denies any urinary burning or frequency I performed an examination of the patient and discussed their management with the Nurse Practitioner. I have reviewed the Nurse Practitioner's notes and agree with the documented findings and plan of care Patient Condition at Discharge: Stable Plan - Discharge Summary Discharge Rx Participant: No New Discharge Prescriptions: No Action Atorvastatin [Lipitor] 10 mg PO HS hydrALAZINE HCL [Apresoline] 25 mg PO BID amLODIPine BESYLATE/BENAZEPRIL [amLODIPine BESYLATE/BENAZEPRIL 10-20 mg] 1 cap PO DAILY Metoprolol Tartrate [Lopressor] 25 mg PO DAILY HYDROcodone/APAP 7.5-325MG [[place] 7.5-325] 1 tab PO TID PRN PRN Reason: Pain Albuterol Inhaler [Ventolin Hfa Inhaler] 2 puff INHALATION RT-QID Discharge Medication List Atorvastatin [Lipitor] 10 mg PO HS 05/05/15 [History] HYDROcodone/APAP 7.5-325MG [[place] 7.5-325] 1 tab PO TID PRN 06/13/18 [History] Metoprolol Tartrate [Lopressor] 25 mg PO DAILY 06/13/18 [History] amLODIPine BESYLATE/BENAZEPRIL [amLODIPine BESYLATE/BENAZEPRIL 10-20 mg] 1 cap PO DAILY 06/13/18 [History] hydrALAZINE HCL [Apresoline] 25 mg PO BID 06/13/18 [History] Albuterol Inhaler [Ventolin Hfa Inhaler] 2 puff INHALATION RT-QID 06/20/18 [ History] Follow up Appointment(s)/Referral(s): Nayan Elena MD [STAFF PHYSICIAN] - 3 Weeks
[2018-07-06] MEDS ORDERED: PANTOPRAZOLE 40 MG TABLET PO SCH (07:30)
--- NOTE | 2018-07-06 10:06 | ECHOF ---
Referral Reason:cp MEASUREMENTS -------- HEIGHT: 167.6 cm WEIGHT: 70.8 kg BP: 121/76 RVIDd: 3.5 cm (< 3.3) IVSd: 1.1 cm (0.6 - 1.1) LVIDd: 3.7 cm (3.9 - 5.3) LVPWd: 1.2 cm (0.6 - 1.1) IVSs: 1.5 cm LVIDs: 2.9 cm LVPWs: 1.9 cm LA Diam: 3.6 cm (2.7 - 3.8) LAESV Index (A-L): 33.37 ml/m Ao Diam: 3.0 cm (2.0 - 3.7) AV Cusp: 2.0 cm (1.5 - 2.6) EPSS: 0.2 cm MV E Cesar: 0.66 m/s MV DecT: 258 ms MV A Cesar: 0.64 m/s MV E/A Ratio: 1.03 RAP: 5.00 mmHg RVSP: 23.97 mmHg MV EF SLOPE: 60.36 mm/s (70 - 150) MV EXCURSION: 1.50 cm (> 18.000) FINDINGS -------- Sinus rhythm. This was a technically good study. The left ventricular size is normal. There is borderline concentric left ventricular hypertrophy. Overall left ventricular systolic function is normal with, an EF between 60 - 65 %. The right ventricle is mildly enlarged. LA is midly dilated 29-33ml/m2. The right atrium is normal in size. Trace amount of aortic regurgitation. There is trace to mild mitral regurgitation. Mild tricuspid regurgitation present. Right ventricular systolic pressure is normal at < 35 mmHg. Trace/mild (physiologic) pulmonic regurgitation. The aortic root size is normal. Normal inferior vena cava with normal inspiratory collapse consistent with estimated right atrial pre ssure of 5 mmHg. There is no pericardial effusion. CONCLUSIONS -------- 1. Sinus rhythm. 2. This was a technically good study. 3. The left ventricular size is normal. 4. There is borderline concentric left ventricular hypertrophy. 5. Overall left ventricular systolic function is normal with, an EF between 60 - 65 %. 6. The right ventricle is mildly enlarged. 7. LA is midly dilated 29-33ml/m2. 8. The right atrium is normal in size. 9. Trace amount of aortic regurgitation. 10. There is trace to mild mitral regurgitation. 11. Mild tricuspid regurgitation present. 12. Right ventricular systolic pressure is normal at < 35 mmHg. 13. Trace/mild (physiologic) pulmonic regurgitation. 14. The aortic root size is normal. 15. Normal inferior vena cava with normal inspiratory collapse consistent with estimated right atrial pressure of 5 mmHg. 16. There is no pericardial effusion. J2EE ARCHITECT: DEREK Godinez
== END 2018-07-05 16:56 | disposition home or self-care (01) ==
LOC: 1SOBS 16:40
PROVIDERS: ADMIT Internal Medicine; ATTEND Internal Medicine
DX: R07.9 Chest pain, unspecified (principal); E78.00 Pure hypercholesterolemia, unspecified; E78.5 Hyperlipidemia, unspecified; I10 Essential (primary) hypertension; J44.9 Chronic obstructive pulmonary disease, unspecified; R10.13 Epigastric pain; F10.10 Alcohol abuse, uncomplicated; R14.0 Abdominal distension (gaseous); Z79.899 Other long term (current) drug therapy; Z79.891 Long term (current) use of opiate analgesic; Z87.891 Personal history of nicotine dependence; Z83.3 Family history of diabetes mellitus; Z82.49 Family history of ischemic heart disease and other diseases of the circulatory system; E66.9 Obesity, unspecified; Z87.09 Personal history of other diseases of the respiratory system; Z68.25 Body mass index [BMI] 25.0-25.9, adult
CPT/HCPCS: 96372 ×2; 93306; 85379; 83880; 80053 ×2; 82550; 82553; 84484 ×2; 85025 ×2; 71046; 76705; G0378 ×2; G0379; J1644 ×2; 93005

== ENCOUNTER 2018-07-11 07:23 | Day surgery (SDC) | payer OTHER ==
[2018-07-07 15:51] VITALS: BMI 24.2
[2018-07-11 07:42] VITALS: TEMP 98.4
[2018-07-11] MEDS ORDERED: LACTATED RINGERS 1,000 ML IV ONE (07:46)
[2018-07-11] MEDS ORDERED: LIDOCAINE 1% 20 ML VIAL (10MG/ML) FOR IV START INTRADERMA ONE (07:46)
--- NOTE | 2018-07-11 09:52 | P.PCN ---
Date of Procedure: 07/11/18 Procedure(s) Performed: Procedure: Esophagogastroduodenoscopy and biopsy. Preoperative diagnosis: Postprandial abdominal pain of recent onset and suspected reflux issues. Postoperative diagnosis: 1. Small sliding hiatal hernia with no obvious esophagitis or complicated reflux disease. 2. Antral gastritis. 3. Multiple biopsies obtained from the duodenum, antrum and esophagus area Preparation and sedation were provided by anesthesia. Brief clinical history: The patient is a 62-year-old male who is scheduled for this evaluation because of recent onset of postprandial bloating and abdominal distress making him not able to eat. He denies dysphagia as such. He complains of regurgitation and burping and has lost 10 pounds in 2-3 weeks. Procedure: With the patient on his left lateral decubitus position and after informed consent and adequate sedation, the video Olympus-GIF 190 video upper endoscope was used and was advanced under direct vision through the cricopharyngeus down the esophagus. GE junction was around 38 cm from the incisors and there was a small sliding hiatal hernia but no obvious esophagitis or complicated reflux disease. The endoscope was then passed into the stomach which was insufflated with air and inspected in detail including the retroflex view in the cardia. There was prominent folds in the immediate prepyloric area and there was mottling and erythema consistent with gastritis but no ulcers or gastric outlet obstruction. Pyloric channel did not show any ulcers. Duodenal bulb, post bulbar area and descending duodenum appeared within normal limits. Because of his symptoms, I obtained biopsies from the duodenum, antrum and esophagus then the endoscope was withdrawn. The patient tolerated the procedure well. Plan: The patient was reassured. Will await biopsy results. Further plans can be made based on his course and biopsy results. He will follow up with you as planned and I will be happy to see in the office of his symptoms persist.
[2018-07-11 09:53] VITALS: PULSE 66
[2018-07-11 10:09] VITALS: BP 110/73; RESP 18
== END 2018-07-11 10:24 | disposition home or self-care (01) ==
LOC: ORWHC2ENDO 07:23
DX: K31.9 Disease of stomach and duodenum, unspecified (principal); K21.0 Gastro-esophageal reflux disease with esophagitis; K29.70 Gastritis, unspecified, without bleeding; K44.9 Diaphragmatic hernia without obstruction or gangrene; J44.9 Chronic obstructive pulmonary disease, unspecified; I10 Essential (primary) hypertension; M19.90 Unspecified osteoarthritis, unspecified site; E78.5 Hyperlipidemia, unspecified; Z87.891 Personal history of nicotine dependence; Z79.891 Long term (current) use of opiate analgesic; Z79.899 Other long term (current) drug therapy
CPT/HCPCS: 43239; 88305

== ENCOUNTER → 2018-12-15 | Outpatient (CLI) | payer MEDICARE, OTHER ==
--- NOTE | 2018-12-15 15:08 | CT ---
EXAMINATION TYPE: CT sinus wo con DATE OF EXAM: 12/15/2018 COMPARISON: None HISTORY: chronic sinus congestion CT DLP: 440.[address] of the paranasal sinuses was performed in the axial and coronal planes. Bone and soft tissue settings are submitted. There is moderate opacification of the maxillary sinuses, sphenoid sinus and frontal sinus. There is severe mucosal thickening or underlying polyposis involving the ethmoid air cells. The osteal meatal units are obstructed bilaterally. The nasal septum is midline. No bony destructive changes are seen within the field of view. IMPRESSION: Moderately severe pansinusitis. Underlying polyposis is not excluded.
== END | disposition home or self-care (01) ==
LOC: RADCTMAIN 14:28
PROVIDERS: ATTEND Internal Medicine
DX: J32.4 Chronic pansinusitis (principal)
CPT/HCPCS: 70486